=== PATIENT | male | born 1940 | race Caucasian/White ===

== ENCOUNTER 2024-09-20 18:18 | Inpatient (IN) | payer MEDICARE, BC ==
[~2024-09-20] VITALS: Ht 188 cm; Wt 64.0 kg
[2024-09-20] MEDS ORDERED: methylPREDNISolone SOD SUCC 125 MG/2 ML VIAL ONE (18:28)
[2024-09-20] MEDS ORDERED: IPRATROPIUM BROMIDE 0.5 MG/2.5 ML NEBU ONE (18:29)
[2024-09-20] MEDS ORDERED: ALBUTEROL SULFATE 2.5 MG/3 ML NEBU ONE (18:29)
[2024-09-20] MEDS: methylPREDNISolone SOD SUCC 125 MG/2 ML VIAL IV ONE (18:33)
[2024-09-20 18:44] LABS: ABG BASE EXCESS 3.3 mmol/L (-2.0-3.0); ABG HCO3 31.3 mmol/L (21.0-28.0); ABG PCO2 64.4 mmHg (35.0-48.0); ABG PH 7.304 (7.350-7.450); ABG PO2 56.1 mmHg (83.0-108.0); ABG TOTAL HEMOGLOBIN 12.7 G/dL (13.5-17.5); AaDO2 85.4 mmHg; COHb 0.7 % (0.5-1.5); MetHb 0.3 % (0.0-1.5); O2Hb 84.9 % (94.0-98.0)
[2024-09-20 18:59] LABS: BASOPHILS % (AUTO) 0.1 % (0.0-2.0); HEMATOCRIT 35.4 % (36.7-47.1); HEMOGLOBIN 11.6 g/dL (12.5-16.3); LYMPHOCYTES # (AUTO) 0.6 K/uL (0.8-4.8); LYMPHOCYTES % (AUTO) 2.8 % (20.5-51.5); MEAN CORPUSCULAR HEMOGLOBIN 31.1 uug (23.8-33.4); MEAN CORPUSCULAR HGB CONC 33 g/dL (32.5-36.3); MEAN CORPUSCULAR VOLUME 95.2 fL (73.0-96.2); MONOCYTES # (AUTO) 1.8 K/uL (0.1-1.30); MONOCYTES % (AUTO) 7.7 % (0.0-11.0); NEUTROPHILS # (AUTO) 20.4 K/uL (1.8-8.9); NEUTROPHILS % (AUTO) 89.4 % (38.5-71.5); PLATELET COUNT (AUTO) 257 K/uL (152-348); RED BLOOD CELL COUNT(AUTO) 3.72 MIL/uL (4.06-5.63); RED CELL DISTRIBUTION WIDTH 12.9 % (12.1-16.2); WHITE BLOOD COUNT (AUTO) 22.9 K/uL (3.6-10.2)
[2024-09-20] MEDS: IPRATROPIUM BROMIDE 0.5 MG/2.5 ML NEBU NEB ONE (18:59)
[2024-09-20] MEDS: ALBUTEROL SULFATE 2.5 MG/3 ML NEBU NEB ONE (18:59)
[2024-09-20] MEDS ORDERED: SULF500T46 PO (19:03)
[2024-09-20] MEDS ORDERED: ESCI10TA PO (19:03)
[2024-09-20] MEDS ORDERED: HYDR-3972 PO (19:03)
[2024-09-20] MEDS ORDERED: CALC-1276 PO (19:03)
[2024-09-20] MEDS ORDERED: BISA10SU12 RC (19:03)
[2024-09-20] MEDS ORDERED: ERGO500040 PO (19:03)
[2024-09-20] MEDS ORDERED: TAMS-3 PO (19:03)
[2024-09-20] MEDS ORDERED: MULT-594 PO (19:03)
[2024-09-20] MEDS ORDERED: ZINC220T3 PO (19:03)
[2024-09-20] MEDS ORDERED: AZIT500T PO (19:03)
[2024-09-20] MEDS ORDERED: MELA1TAB53 PO (19:03)
[2024-09-20] MEDS ORDERED: BUDE0.5A4 NEB (19:03)
[2024-09-20] MEDS ORDERED: ROSU10TA29 PO (19:03)
[2024-09-20] MEDS ORDERED: POLY17PO4 PO (19:03)
[2024-09-20] MEDS ORDERED: ACET325T53 PO (19:03)
[2024-09-20] MEDS ORDERED: NA P133E RC (19:03)
[2024-09-20] MEDS ORDERED: ALBU18HF2 INH (19:03)
[2024-09-20] MEDS ORDERED: SENN8.6T19 PO (19:03)
[2024-09-20] MEDS ORDERED: MAGN400O6 PO (19:03)
[2024-09-20] MEDS ORDERED: ASCO500C18 PO (19:03)
[2024-09-20 19:14] LABS: *BILIRUBIN,URIN NEGATIVE (NEGATIVE); *BLOOD, URINE 2+ (NEGATIVE); *CLARITY,URINE CLEAR (CLEAR); *COLOR,URINE Other (YELLOW); *KETONES,URINE NEGATIVE (NEGATIVE); *PROTEIN,URINE 3+ (NEGATIVE); *UROBILINOGEN,URINE 0.2 E.U./dl (NORMAL); LEUKOCYTE ESTERASE ,URINE TRACE (NEGATIVE); NITRITE, URINE NEGATIVE (NEGATIVE); UGLUCOSE NEGATIVE (NEGATIVE)
[2024-09-20 19:17] LABS: DIFFERENTIAL COMMENT 1
[2024-09-20 19:21] LABS: CALCIUM 9.3 mg/dL (8.5-10.1); CARBON DIOXIDE 31 mmol/L (21-32); CHLORIDE 102 mmol/L (98-107); CREATININE 0.8 mg/dL (0.6-1.3); GLUCOSE 167 mg/dL (74-106); POTASSIUM 4.5 mmol/L (3.5-5.1); SODIUM SERUM 142 mmol/L (136-145); UREA NITROGEN, BLOOD 25 mg/dL (7-18)
[2024-09-20 19:35] LABS: ALANINE AMINOTRANSFERASE 16 U/L (16-63); ALBUMIN 2.7 g/dL (3.4-5.0); ALKALINE PHOSPHATASE 137 U/L (50-136); ASPARTATE AMINOTRANSFERASE 12 U/L (15-37); BILIRUBIN,DIRECT 0.3 mg/dL (0.0-0.2); BILIRUBIN,TOTAL 0.8 mg/dL (0.2-1.0); NT-PRO BNP 293 pg/mL (0-125); TOTAL PROTEIN, SERUM 6.5 g/dL (6.4-8.2)
[2024-09-20] MEDS: AZITHROMYCIN IV 500 MG in IV DEXTROSE 5% 250 ML IV SCH (20:30)
[2024-09-20 20:49] LABS: BACTERIA,URINE FEW /HPF (NONE SEEN); SQUAMOUS EPITHELIAL CELL,UR NONE SEEN /HPF (NONE SEEN)
[2024-09-20 20:50] LABS: MUCUS,URINE MODERATE /LPF (0-FEW)
[2024-09-20 21:03] LABS: ABG BASE EXCESS 3.9 mmol/L (-2.0-3.0); ABG HCO3 31.7 mmol/L (21.0-28.0); ABG PCO2 63.6 mmHg (35.0-48.0); ABG PH 7.315 (7.350-7.450); ABG PO2 135.6 mmHg (83.0-108.0); ABG SITE RIGHT RADIAL; ABG TOTAL HEMOGLOBIN 12.3 G/dL (13.5-17.5); AaDO2 98.4 mmHg; COHb 0.1 % (0.5-1.5); MetHb 0.2 % (0.0-1.5); O2Hb 98.2 % (94.0-98.0)
[2024-09-20] MEDS ORDERED: IPRATROPIUM BROMIDE 0.5 MG/2.5 ML NEBU NEB PRN (21:45)
[2024-09-20] MEDS ORDERED: ONDANSETRON 4 MG/2 ML VIAL IV PRN (21:45)
[2024-09-20] MEDS ORDERED: ACETAMINOPHEN 325 MG TABLET PO PRN (21:45)
[2024-09-20] MEDS ORDERED: ALBUTEROL SULFATE 1.25 MG/3 ML NEBU NEB PRN (21:45)
[2024-09-20] MEDS ORDERED: MAGNESIUM HYDROXIDE 30 ML LIQUID UDC PO PRN (21:45)
[2024-09-20] MEDS ORDERED: AZITHROMYCIN 500MG/ D5W 250ML IVPB **ER PYXIS ONLY IV ONE (21:53)
[2024-09-20] MEDS: ENOXAPARIN SODIUM 40 MG/0.4 ML DISP.SYRIN SQ SCH (23:00)
[2024-09-20] MEDS: levoFLOXacin 750MG/D5W 750 MG in PREMIXED 1 EACH IV SCH (23:00)
[2024-09-21] MEDS ORDERED: ENOXAPARIN SODIUM 40 MG/0.4 ML DISP.SYRIN SQ ONE (00:39)
[2024-09-21] MEDS ORDERED: CEFEPIME HCL 1 G VIAL ONE (01:48)
[2024-09-21] MEDS: methylPREDNISolone SOD SUCC 40 MG/ML VIAL IV SCH (06:10)
[2024-09-21] MEDS ORDERED: methylPREDNISolone SOD SUCC 40 MG/ML VIAL ONE ×3 (06:18→14:05)
[2024-09-21] MEDS ORDERED: PANTOPRAZOLE SODIUM 40 MG VIAL ONE (08:52)
[2024-09-21] MEDS ORDERED: AZITHROMYCIN IV 500 MG in IV DEXTROSE 5% 250 ML IV SCH (09:00)
[2024-09-21] MEDS: PANTOPRAZOLE SODIUM 40 MG VIAL IV SCH (09:00)
[2024-09-21 09:06] LABS: BASOPHILS % (AUTO) 0.1 % (0.0-2.0); HEMATOCRIT 31.7 % (36.7-47.1); HEMOGLOBIN 10.6 g/dL (12.5-16.3); LYMPHOCYTES # (AUTO) 0.1 K/uL (0.8-4.8); LYMPHOCYTES % (AUTO) 0.6 % (20.5-51.5); MEAN CORPUSCULAR HEMOGLOBIN 31.4 uug (23.8-33.4); MEAN CORPUSCULAR HGB CONC 33 g/dL (32.5-36.3); MEAN CORPUSCULAR VOLUME 94.2 fL (73.0-96.2); MONOCYTES # (AUTO) 0.7 K/uL (0.1-1.30); MONOCYTES % (AUTO) 3.1 % (0.0-11.0); NEUTROPHILS # (AUTO) 20.8 K/uL (1.8-8.9); NEUTROPHILS % (AUTO) 96.2 % (38.5-71.5); PLATELET COUNT (AUTO) 254 K/uL (152-348); RED BLOOD CELL COUNT(AUTO) 3.36 MIL/uL (4.06-5.63); RED CELL DISTRIBUTION WIDTH 12.6 % (12.1-16.2); WHITE BLOOD COUNT (AUTO) 21.6 K/uL (3.6-10.2)
[2024-09-21 09:10] LABS: DIFFERENTIAL COMMENT 1
[2024-09-21 09:35] LABS: CALCIUM 8.5 mg/dL (8.5-10.1); CARBON DIOXIDE 34 mmol/L (21-32); CHLORIDE 104 mmol/L (98-107); CREATININE 0.7 mg/dL (0.6-1.3); GLUCOSE 153 mg/dL (74-106); MAGNESIUM 2.4 mg/dL (1.8-2.4); PHOSPHOROUS 2.8 mg/dL (2.5-4.9); POTASSIUM 5.2 mmol/L (3.5-5.1); SODIUM SERUM 141 mmol/L (136-145); UREA NITROGEN, BLOOD 28 mg/dL (7-18)
[2024-09-21] MEDS ORDERED: VIT1CAPS27 PO (11:21)
[2024-09-21] MEDS ORDERED: HYDR-4209 PO (11:21)
[2024-09-21] MEDS ORDERED: CALC500T88 PO (11:21)
[2024-09-21] MEDS ORDERED: SULF500T8 PO (11:21)
[2024-09-21] MEDS ORDERED: AZIT250T PO (11:21)
[2024-09-21] MEDS ORDERED: MAGNESIUM HYDROXIDE 30 ML LIQUID UDC PO PRN (16:00)
[2024-09-21] MEDS ORDERED: Medication Not On Formulary EA (Melatonin 1 TAB) PO PRN (16:00)
[2024-09-21] MEDS ORDERED: MIRALAX 17 GM POWD.PACK PO PRN (16:00)
[2024-09-21] MEDS ORDERED: MELATONIN 3 MG TABLET PO PRN (16:30)
[2024-09-21] MEDS ORDERED: Medication Not On Formulary EA (Vit C/Vite Ac/Lut/Copper/Znox (Preservision Lutein Softg PO SCH (17:00)
[2024-09-21] MEDS: BETA CAROTENE/VIT C & E/MIN TABLET PO SCH (17:17)
[2024-09-21] MEDS: CALCIUM CARBONATE 500 MG TABLET PO SCH (17:17)
[2024-09-21] MEDS: SULFASALAZINE 500 MG TABLET PO SCH (17:17)
[2024-09-21] MEDS ORDERED: BUDESONIDE 0.5 MG/2 ML NEBU ONE (21:12)
[2024-09-21] MEDS: BUDESONIDE 0.5 MG/2 ML NEBU NEB SCH (21:13)
[2024-09-21 21:42] VITALS: O2SAT 95
[2024-09-21 23:00] VITALS: BP 160/67; TEMP 97.6; O2SAT 95
[2024-09-21] MEDS ORDERED: levoFLOXacin 750MG/D5W 750 MG in PREMIXED 1 EACH IV SCH (23:00)
[2024-09-21] MEDS: CEFEPIME HCL 1 G in IV DEXTROSE 5% 50 ML IV SCH (23:16)
[2024-09-21] MEDS: ENOXAPARIN SODIUM 40 MG/0.4 ML DISP.SYRIN SQ SCH (23:17)
[2024-09-21] MEDS: ATORVASTATIN 20 MG TABLET PO SCH (23:18)
[2024-09-21] MEDS: TAMSULOSIN HCL 0.4 MG CAP.SR.24H PO SCH (23:19)
[2024-09-22] VITALS (8 sets, daily range): BP systolic 123–146; BP diastolic 65–75; TEMP 98–98.5; O2SAT 94–98
[2024-09-22 07:25] LABS: HEMATOCRIT 31.7 % (36.7-47.1); HEMOGLOBIN 10.7 g/dL (12.5-16.3); LYMPHOCYTES # (AUTO) 0.2 K/uL (0.8-4.8); LYMPHOCYTES % (AUTO) 1.2 % (20.5-51.5); MEAN CORPUSCULAR HEMOGLOBIN 31.7 uug (23.8-33.4); MEAN CORPUSCULAR HGB CONC 34 g/dL (32.5-36.3); MONOCYTES # (AUTO) 0.5 K/uL (0.1-1.30); MONOCYTES % (AUTO) 2.8 % (0.0-11.0); PLATELET COUNT (AUTO) 275 K/uL (152-348); RED BLOOD CELL COUNT(AUTO) 3.37 MIL/uL (4.06-5.63); RED CELL DISTRIBUTION WIDTH 12.6 % (12.1-16.2); WHITE BLOOD COUNT (AUTO) 17.7 K/uL (3.6-10.2)
[2024-09-22 07:57] LABS: CALCIUM 8.5 mg/dL (8.5-10.1); CARBON DIOXIDE 32 mmol/L (21-32); CHLORIDE 103 mmol/L (98-107); CREATININE 0.8 mg/dL (0.6-1.3); GLUCOSE 130 mg/dL (74-106); MAGNESIUM 2.7 mg/dL (1.8-2.4); PHOSPHOROUS 3.2 mg/dL (2.5-4.9); POTASSIUM 4.7 mmol/L (3.5-5.1); SODIUM SERUM 140 mmol/L (136-145); UREA NITROGEN, BLOOD 40 mg/dL (7-18)
[2024-09-22 08:21] LABS: DIFFERENTIAL COMMENT 1
[2024-09-22] MEDS ORDERED: Medication Not On Formulary EA (Multivitamins (Multivitamin) 1 TAB) PO SCH (09:00)
[2024-09-22] MEDS ORDERED: Medication Not On Formulary EA (Zinc Sulfate (Zinc) 1 TAB) PO SCH (09:00)
[2024-09-22] MEDS ORDERED: Medication Not On Formulary EA (Ascorbic Acid (Vitamin C) 1 CAP) PO SCH (09:00)
[2024-09-22] MEDS: ZINC SULFATE 220 MG CAPSULE PO SCH (09:03)
[2024-09-22] MEDS: ESCITALOPRAM OXALATE 10 MG TABLET PO SCH (09:03)
[2024-09-22] MEDS: ASCORBIC ACID 500 MG TABLET PO SCH (09:03)
[2024-09-22] MEDS: MULTIVITAMINS,THERAPEUTIC TABLET PO SCH (09:04)
[2024-09-22] MEDS: SENNOSIDES 1 TABLET PO PRN (09:05)
[2024-09-22 10:24] LABS: ABG BASE EXCESS 4.3 mmol/L (-2.0-3.0); ABG HCO3 28.5 mmol/L (21.0-28.0); ABG PCO2 41.3 mmHg (35.0-48.0); ABG PH 7.457 (7.350-7.450); ABG PO2 74.3 mmHg (83.0-108.0); ABG TOTAL HEMOGLOBIN 11.7 G/dL (13.5-17.5); AaDO2 95.6 mmHg; COHb 0.3 % (0.5-1.5); O2Hb 94.3 % (94.0-98.0)
[2024-09-22] MEDS: CEFEPIME HCL 2 GM in IV DEXTROSE 5% 100 ML IV SCH (21:26)
[2024-09-23] VITALS (13 sets, daily range): BP systolic 134–170; BP diastolic 67–82; TEMP 97.7–98.6; O2SAT 95–99
[2024-09-23] MEDS: PANTOPRAZOLE SODIUM 40 MG TABLET.DR PO SCH (06:09)
[2024-09-23 07:32] LABS: BASOPHILS % (AUTO) 0.1 % (0.0-2.0); HEMATOCRIT 33.2 % (36.7-47.1); HEMOGLOBIN 10.9 g/dL (12.5-16.3); LYMPHOCYTES # (AUTO) 0.3 K/uL (0.8-4.8); LYMPHOCYTES % (AUTO) 2.2 % (20.5-51.5); MEAN CORPUSCULAR HEMOGLOBIN 30.7 uug (23.8-33.4); MEAN CORPUSCULAR HGB CONC 33 g/dL (32.5-36.3); MEAN CORPUSCULAR VOLUME 93.8 fL (73.0-96.2); MONOCYTES # (AUTO) 0.6 K/uL (0.1-1.30); MONOCYTES % (AUTO) 4.4 % (0.0-11.0); NEUTROPHILS # (AUTO) 13.7 K/uL (1.8-8.9); NEUTROPHILS % (AUTO) 93.3 % (38.5-71.5); PLATELET COUNT (AUTO) 271 K/uL (152-348); RED BLOOD CELL COUNT(AUTO) 3.54 MIL/uL (4.06-5.63); RED CELL DISTRIBUTION WIDTH 12.8 % (12.1-16.2); WHITE BLOOD COUNT (AUTO) 14.6 K/uL (3.6-10.2)
[2024-09-23 07:41] LABS: DIFFERENTIAL COMMENT 1
[2024-09-23 08:02] LABS: CALCIUM 8.1 mg/dL (8.5-10.1); CARBON DIOXIDE 32 mmol/L (21-32); CHLORIDE 102 mmol/L (98-107); CREATININE 0.7 mg/dL (0.6-1.3); GLUCOSE 126 mg/dL (74-106); MAGNESIUM 2.6 mg/dL (1.8-2.4); POTASSIUM 4.6 mmol/L (3.5-5.1); SODIUM SERUM 139 mmol/L (136-145); UREA NITROGEN, BLOOD 34 mg/dL (7-18)
[2024-09-23 08:18] LABS: ABG BASE EXCESS 7.5 mmol/L (-2.0-3.0); ABG HCO3 32.6 mmol/L (21.0-28.0); ABG PCO2 47.8 mmHg (35.0-48.0); ABG PH 7.451 (7.350-7.450); ABG PO2 66.8 mmHg (83.0-108.0); ABG SITE RIGHT RADIAL; ABG TOTAL HEMOGLOBIN 11.7 G/dL (13.5-17.5); AaDO2 93.9 mmHg; COHb 0.6 % (0.5-1.5); MetHb 0.2 % (0.0-1.5); O2Hb 91.5 % (94.0-98.0)
[2024-09-23] MEDS: AMLODIPINE 5 MG TABLET PO SCH (18:01)
[2024-09-23] MEDS: methylPREDNISolone SOD SUCC 40 MG/ML VIAL IV SCH (21:25)
[2024-09-24 00:36] VITALS: O2SAT 95
[2024-09-24 04:00] VITALS: TEMP 97.7
[2024-09-24 06:46] VITALS: BP 138/67; TEMP 97.7; O2SAT 94
[2024-09-24 08:06] LABS: BASOPHILS % (AUTO) 0.3 % (0.0-2.0); HEMATOCRIT 35.1 % (36.7-47.1); HEMOGLOBIN 11.7 g/dL (12.5-16.3); LYMPHOCYTES # (AUTO) 0.5 K/uL (0.8-4.8); LYMPHOCYTES % (AUTO) 4.1 % (20.5-51.5); MEAN CORPUSCULAR HEMOGLOBIN 31.4 uug (23.8-33.4); MEAN CORPUSCULAR HGB CONC 33 g/dL (32.5-36.3); MEAN CORPUSCULAR VOLUME 94.3 fL (73.0-96.2); MONOCYTES # (AUTO) 0.8 K/uL (0.1-1.30); MONOCYTES % (AUTO) 6.6 % (0.0-11.0); NEUTROPHILS # (AUTO) 10.1 K/uL (1.8-8.9); PLATELET COUNT (AUTO) 244 K/uL (152-348); RED BLOOD CELL COUNT(AUTO) 3.73 MIL/uL (4.06-5.63); RED CELL DISTRIBUTION WIDTH 12.3 % (12.1-16.2); WHITE BLOOD COUNT (AUTO) 11.4 K/uL (3.6-10.2)
[2024-09-24 08:31] LABS: DIFFERENTIAL COMMENT 1
[2024-09-24 08:37] LABS: CALCIUM 8.5 mg/dL (8.5-10.1); CREATININE 0.7 mg/dL (0.6-1.3); GLUCOSE 96 mg/dL (74-106); MAGNESIUM 2.5 mg/dL (1.8-2.4); PHOSPHOROUS 2.9 mg/dL (2.5-4.9); UREA NITROGEN, BLOOD 22 mg/dL (7-18)
[2024-09-24 09:20] VITALS: O2SAT 95
[2024-09-24 09:30] VITALS: O2SAT 99
[2024-09-24 10:39] LABS: CARBON DIOXIDE 33 mmol/L (21-32); CHLORIDE 103 mmol/L (98-107); SODIUM SERUM 141 mmol/L (136-145)
[2024-09-24 11:32] VITALS: BP 151/74; TEMP 97.5; O2SAT 94
[2024-09-25] MEDS ORDERED: ERGOCALCIFEROL 50,000 UNIT CAPSULE PO SCH (09:00)
== END 2024-09-24 16:40 | DRG 189 ==
LOC: ER 18:25 → TRANSITION 19:12 → DOU3 09-21 21:53 → TELE3 09-21 22:04 → MEDSURG3 09-23 10:31
PROC: 5A09457 Assistance with Respiratory Ventilation, 24-96 Consecutive Hours, Continuous Positive Airway Pressure (ICD-10-PCS; principal; 2024-09-20)
DX: J96.21 Acute and chronic respiratory failure with hypoxia (principal); J15.9 Unspecified bacterial pneumonia; N17.0 Acute kidney failure with tubular necrosis; J44.1 Chronic obstructive pulmonary disease with (acute) exacerbation; T83.518A Infection and inflammatory reaction due to other urinary catheter, initial encounter; N39.0 Urinary tract infection, site not specified; J44.0 Chronic obstructive pulmonary disease with (acute) lower respiratory infection; E44.0 Moderate protein-calorie malnutrition; J96.22 Acute and chronic respiratory failure with hypercapnia; M06.9 Rheumatoid arthritis, unspecified; Y84.6 Urinary catheterization as the cause of abnormal reaction of the patient, or of later complication, without mention of misadventure at the time of the procedure; N40.1 Benign prostatic hyperplasia with lower urinary tract symptoms; N13.9 Obstructive and reflux uropathy, unspecified; M15.9 Polyosteoarthritis, unspecified; F32.A Depression, unspecified; E78.5 Hyperlipidemia, unspecified; I27.20 Pulmonary hypertension, unspecified; D64.9 Anemia, unspecified; E88.09 Other disorders of plasma-protein metabolism, not elsewhere classified
CPT/HCPCS: 36415; 36600; 71045; 82803; 83605; 83735; 84100; 84484; 85025; 87040; 93307; 94640; 94660; 94760; G0378; J0456; J0692; J1650; J1956; J2470; J2919; J3590; J7050